=== PATIENT | male | born 1955 | race Caucasian/White ===

== ENCOUNTER 2017-07-05 10:33 | Emergency (ER) | payer MEDICAID ==
[2017-07-05] MEDS ORDERED: ANTIVERT PO ONE (11:17)
--- NOTE | 2017-07-05 11:17 | Emergency Department Report ---
HPI - General Chief Complaint: Dizziness Time Seen by Provider: 07/05/17 11:02 - HPI HPI: This is a 62-year-old male who presents to the emergency department with complaint of acute on chronic dizziness. He says it feels like he is going to pass out and has had some episodes of falling from it in the past. He has a past medical history of hypertension, diabetes and atrial fibrillation. He said that he saw his primary care doctor but they did not do anything about his dizziness. He has not taken anything for his symptoms prior to presentation today. He has a history of open-heart surgery. No recent travel or sick contacts at home. He denies any vision change, slurred speech, headache, chest pain, shortness of breath, nausea, vomiting or fever. ED Past Medical Hx - Social History Smoking Status: Former Smoker Substance Use Type: Alcohol, Marijuana ED Review of Systems ROS: Stated complaint: DIZZINESS Other details as noted in HPI Comment: All other systems reviewed and negative Constitutional: denies: chills, fever Eyes: denies: eye pain, eye discharge, vision change ENT: denies: ear pain, throat pain Respiratory: denies: cough, shortness of breath, wheezing Cardiovascular: denies: chest pain, palpitations Gastrointestinal: denies: abdominal pain, nausea, diarrhea Genitourinary: denies: urgency, dysuria Musculoskeletal: denies: back pain, joint swelling, arthralgia Skin: denies: rash, lesions Neurological: other. denies: headache Physical Exam - Physical Exam Vital Signs: Vital Signs 07/05/17 10:50 Pulse Rate 81 Respiratory 18 Rate Blood Pressure 165/103 O2 Sat by Pulse 98 Oximetry Physical Exam: GENERAL: The patient is well-developed well-nourished. HENT: Normocephalic. Atraumatic. Patient has moist mucous membranes. EYES: Extraocular motions are intact. Pupils equal reactive to light bilaterally. No nystagmus. NECK: Supple. Full range of motion. Trachea is midline. CHEST/LUNGS: Clear to auscultation. There is no respiratory distress noted. HEART/CARDIOVASCULAR: Regular. There is no tachycardia. There is no gallop rub or murmur. ABDOMEN: Abdomen is soft, nontender. Patient has normal bowel sounds. SKIN: Skin is warm and dry. NEURO: The patient is awake, alert, and oriented. The patient is cooperative. The patient has no focal neurologic deficits. The patient has normal speech and gait. Cranial nerves II through XII grossly intact. No pronator drift. No dysmetria. MUSCULOSKELETAL: There is no tenderness or deformity. There is no limitation range of motion. There is no evidence of acute injury. ED Course Vital Signs 07/05/17 10:50 Pulse Rate 81 Respiratory 18 Rate Blood Pressure 165/103 O2 Sat by Pulse 98 Oximetry ED Medical Decision Making - Lab Data Result diagrams: 07/05/17 11:16 07/05/17 11:16 - EKG Data -: EKG Interpreted by Hi EKG shows normal: sinus rhythm, axis, intervals (prolonged [place] interval), QRS complexes (Q waves to the anterior septal and inferior leads), ST-T waves Rate: normal - EKG Data When compared to previous EKG there are: previous EKG unavailable Interpretation: other (sinus rhythm, rate of 81 bpm, prolonged [place] interval, Q waves to the anterior/lateral/inferior leads) - Radiology Data Radiology results: report reviewed CT HEAD WITHOUT CONTRAST:07/05/17 10:33:00 CLINICAL: Dizziness. TECHNIQUE: 2.5-mm noncontrast scans. COMPARISON:None FINDINGS: Enlarged frontal and temporal lobe sulci. The ventricles are mildly enlarged. No suspicious focal hypodensity. Bilateral basal ganglia calcifications. No mass or mass effect. No hemorrhage, edema or extra-axial collection. The sinuses are clear. Normal orbits and soft tissues. The calvarium and skull base are intact. The vertebral arteries are heavily calcified at the skull base. IMPRESSION: No acute change. Frontotemporal cortical atrophy. Extensive atherosclerotic calcification of the vertebral arteries. Transcribed By: REF Dictated By: AYO CRUZ MD Electronically Authenticated By: AYO CRUZ MD Signed Date/Time: 07/05/17 1144 - Medical Decision Making This is a 62-year-old male presents with a complaint of some nonspecific dizziness that has been going on for a while. On physical exam he does not have any focal, motor or sensory deficits and his cranial nerves are intact. His labs are unremarkable including normal thyroid function, no electrolyte abnormalities, negative troponin and no signs of infection. Blood alcohol level and urine drug screen are negative. He has some hypertension but otherwise his vital signs are stable throughout his ED course. He is on a blood pressure medication that he receives from his PCP, Dr. Kuhn, but he did not take it prior to presentation today and will take it when he goes home. CT of the head did not show any bleed, shift, mass or any acute process. He was seen ambulatory in the emergency department and appears stable while doing so. His EKG did not show any ST elevation [place] or dysrhythmia. There was a prolonged [place] interval possibly indicating a first-degree AV block but there is is no bradycardia. Patient was reevaluated multiple times for multiple hours and says he is feeling much better. He'll be discharged home to follow up with his primary care doctor in the next few days and encouraged to return to the emergency Department with any worsening of symptoms or any acute distress. - Differential Diagnosis orthostatic hypotension, vasovagal, vertigo, dysrhythmia Critical Care Time: No Critical care attestation.: If time is entered above; I have spent that time in minutes in the direct care of this critically ill patient, excluding procedure time. ED Disposition Clinical Impression: Dizziness Hypertension Qualifiers: Hypertension type: essential hypertension Qualified Code(s): I10 - Essential ( primary) hypertension Disposition: DC-01 TO HOME OR SELFCARE Is pt being admited?: No Condition: Stable Instructions: Hypertension (ED), Lightheadedness (ED), Dizziness (ED) Additional Instructions: Please follow-up with your primary care physician in the next few days. Return to the emergency Department with any worsening of your symptoms are any acute distress. Try and stay away from foods that are high in salt and caffeinated products to help with your blood pressure. Repeat blood pressure log. Referrals: PRIMARY CARE, [Primary Care Provider] - [facility] Time of Disposition: 13:24
[2017-07-05 11:26] LABS: Urine Drugs of Abuse Note Disclamer
[2017-07-05 11:32] LABS: Basophils % (Auto) 0.9 % (0.0-1.8); Bilirubin,Urine NEG (Negative); Blood,Urine SM (Negative); Eosinophils % (Auto) 2.2 % (0.0-4.3); Hematocrit 43.1 % (35.5-45.6); Hemoglobin 14.9 gm/dl (11.8-15.2); Ketones,Urine NEG (Negative); Leukocyte Esterase,Urine NEG (Negative); Mean Corpuscular HGB Conc 35 % (32-34); Mean Corpuscular Hemoglobin 32 pg (28-32); Mean Corpuscular Volume 93 fl (84-94); Nitrite,Urine NEG (Negative); Platelet Count 113 K/mm3 (140-440); Red Blood Count 4.64 M/mm3 (3.65-5.03); Red Cell Distribution Width 14.3 % (13.2-15.2); Urobilinogen,Urine < 2.0 mg/dL (<2.0); WBC,Urine < 1.0 /HPF (0.0-6.0); White Blood Count 6.9 K/mm3 (4.5-11.0)
--- NOTE | 2017-07-05 11:47 | Cat Scan Report ---
CT HEAD WITHOUT CONTRAST:07/05/17 10:33:00 CLINICAL: Dizziness. TECHNIQUE: 2.5-mm noncontrast scans. COMPARISON:None FINDINGS: Enlarged frontal and temporal lobe sulci. The ventricles are mildly enlarged. No suspicious focal hypodensity. Bilateral basal ganglia calcifications. No mass or mass effect. No hemorrhage, edema or extra-axial collection. The sinuses are clear. Normal orbits and soft tissues. The calvarium and skull base are intact. The vertebral arteries are heavily calcified at the skull base. IMPRESSION: No acute change. Frontotemporal cortical atrophy. Extensive atherosclerotic calcification of the vertebral arteries.
[2017-07-05 11:59] LABS: Creatine Kinase MB 3.3 ng/mL (0.0-4.0)
[2017-07-05 12:00] LABS: Alanine Aminotransferase 22 units/L (7-56); Albumin 3.7 g/dL (3.9-5); Alkaline Phosphatase 72 units/L (35-129); Anion Gap 18 mmol/L; BUN/Creatinine Ratio 13; Blood Urea Nitrogen 17 mg/dL (9-20); Calcium 8.8 mg/dL (8.4-10.2); Carbon Dioxide 27 mmol/L (22-30); Chloride 99.6 mmol/L (98-107); Creatine Kinase 105 units/L (55-170); Glucose 142 mg/dL (75-100); Potassium 4.5 mmol/L (3.6-5.0); Sodium 140 mmol/L (137-145); Total Protein 7.5 g/dL (6.3-8.2)
[2017-07-05 13:45] VITALS: BP 150/75
== END 2017-07-05 13:46 | disposition home or self-care (01) ==
LOC: ED 10:33
DX: R42 Dizziness and giddiness (principal); I10 Essential (primary) hypertension; Z87.891 Personal history of nicotine dependence; F12.10 Cannabis abuse, uncomplicated
CPT/HCPCS: 36415; 70450; 80053; 80307; 81001; 82550; 82553; 84443; 84484; 85025; 93005; 93010; 99285; G0480; 80320